=== PATIENT | male | born 1990 | race African-American/Black ===

== ENCOUNTER 2024-03-07 21:19 | Emergency (ER) | payer OTHER ==
[~2024-03-07] VITALS: Ht 185.4 cm; Wt 86.0 kg
[2024-03-07 21:27] VITALS: O2SAT 98
[2024-03-07 22:12] LABS: BASOPHILS % 0.5 % (0.0-2.0); EOSINOPHILS % 1.8 % (0.0-5.0); HEMATOCRIT. 38.2 % (42.0-52.0); HEMOGLOBIN. 12.3 g/dL (14.0-18.0); LYMPHOCYTES % 37.1 % (20.0-50.0); MEAN CORPUSCULAR HEMOGLOBIN 27.6 pg (28.0-32.0); MEAN CORPUSCULAR HGB CONC 32.3 g/dL (31.0-37.0); MEAN CORPUSCULAR VOLUME 85.7 fL (80.0-94.0); MEAN PLATELET VOLUME 7.6 fl (7.4-10.4); MONOCYTES % 5.5 % (2.0-8.0); NEUTROPHILS % 55.1 % (40.0-76.0); PLATELET 309 x1000/uL (130-400); RED BLOOD CELL COUNT 4.46 mill/uL (4.7-6.1); WHITE BLOOD COUNT 10.3 x1000/uL (4.5-11.0)
[2024-03-07 22:17] LABS: CHLORIDE 103 mEq/L (98-107); POTASSIUM 3.5 mEq/L (3.5-5.1); SODIUM 139 mEq/L (136-145)
[2024-03-07 22:18] LABS: CARBON DIOXIDE 32 mEq/L (21-32)
[2024-03-07 22:19] LABS: CALCIUM 9.2 mg/dL (8.7-10.4)
[2024-03-07 22:23] LABS: CREATININE 0.9 mg/dL (0.6-1.3); GLUCOSE 113 mg/dL (70-105); UREA NITROGEN BLOOD 14 mg/dL (9-23)
[2024-03-07 22:57] LABS: TROPONIN I HIGH SENSITIVITY < 4 ng/L (3.0-53)
[2024-03-07] MEDS: FAMOTIDINE 20MG TABLET PO ONE (23:54)
[2024-03-07] MEDS: VISCOUS LIDOCAINE 2% 15 ML UDC MM NR (23:55)
[2024-03-07] MEDS: MAGNESIUM/ALUMINUM HYDROXIDE/SIMETHICONE 30ML UDC PO ONE (23:55)
[2024-03-07 23:56] VITALS: BP 105/57; PULSE 92; RESP 19; TEMP 36.50292; O2SAT 100
== END 2024-03-07 23:59 | disposition home or self-care (01) ==
LOC: ER 21:19
DX: R07.89 Other chest pain (principal); Z88.6 Allergy status to analgesic agent
CPT/HCPCS: 80048; 83880; 85025; 84484; 36415; 71045; 93005; 99285; Z7610